=== PATIENT | male | born 1955 | race Two or more races ===

== ENCOUNTER 2022-05-26 05:05 | Day surgery (SDC) | payer OTHER ==
[2022-05-26] MEDS ORDERED: CEPHALEXIN500 M1 PO (08:56)
[2022-05-26] MEDS ORDERED: ULTRAM50 MG PO (08:57)
== END 2022-05-26 12:25 | disposition home or self-care (01) ==
LOC: CIR.AMB 05:05
PROVIDERS: ATTEND Surgery
DX: R15.9 Full incontinence of feces (principal); K62.5 Hemorrhage of anus and rectum; K57.30 Diverticulosis of large intestine without perforation or abscess without bleeding; Z20.822 Contact with and (suspected) exposure to COVID-19; L29.0 Pruritus ani; E78.5 Hyperlipidemia, unspecified
CPT/HCPCS: 64581; 95971; C1778

== ENCOUNTER 2022-06-09 05:25 | Day surgery (SDC) | payer OTHER ==
[~2022-06-09 05:25] MED LIST: CEPHALEXIN500 M1 PO; ULTRAM50 MG PO
[2022-06-09] MEDS ORDERED: ULTRAM50 MG PO (09:57)
== END 2022-06-09 11:00 | disposition home or self-care (01) ==
LOC: CIR.AMB 05:25
PROVIDERS: ATTEND Surgery
DX: R15.9 Full incontinence of feces (principal); L29.0 Pruritus ani; K57.30 Diverticulosis of large intestine without perforation or abscess without bleeding; Z20.822 Contact with and (suspected) exposure to COVID-19; K21.9 Gastro-esophageal reflux disease without esophagitis
CPT/HCPCS: 64590; 95971; L8679

== ENCOUNTER 2024-01-25 06:11 | Day surgery (SDC) | payer OTHER ==
[~2024-01-25] VITALS: Ht 162.6 cm; Wt 67.6 kg
[~2024-01-25 06:11] MED LIST changes: +CARAFATE1 GM PO; +PRILOSEC OTC20 MG PO; +SYNTHROID100 MCG PO; +TENORMIN50 M1 PO
[2024-01-25] MEDS ORDERED: CEFTRIAXONE SODIUM 2,000 MG VIAL ONE (08:39)
[2024-01-25] MEDS ORDERED: METRONIDAZOLE/SODIUM CHLORIDE 500 MG/100 ML PIGGYBACK IV ONE ×2 (08:39→13:00)
[2024-01-25] MEDS ORDERED: POVIDONE-IODINE 118 ML BOTT TOP ONE ×2 (10:56→13:00)
[2024-01-25] MEDS ORDERED: HEMOSTATIC MATRIX 1 KIT KIT TOP ONE ×2 (10:56→13:00)
[2024-01-25] MEDS ORDERED: DIBUCAINE 15 GM OINT..GM. TUBE ONE (10:56)
[2024-01-25] MEDS ORDERED: DIBUCAINE 15 GM OINT..GM. TUBE RECTAL ONE (13:00)
[2024-01-25] MEDS ORDERED: LIDOCAINE HCL 1%/Epi 20ML VIAL IJ ONE (13:00)
[2024-01-25] MEDS ORDERED: BUPIVACAINE HCL 30 ML VIAL IJ ONE (13:00)
[2024-01-25] MEDS ORDERED: CEFTRIAXONE SODIUM 2,000 MG VIAL IV ONE (13:00)
[2024-01-25] MEDS ORDERED: METHYLENE BLUE 50MG/10ML AMP IV ONE (13:15)
[2024-01-25] MEDS ORDERED: NEURONTIN300 MG PO (13:34)
[2024-01-25] MEDS ORDERED: PERCOCET 5-3251 EACH PO (13:35)
== END 2024-01-25 15:00 | disposition home or self-care (01) ==
LOC: CIR.AMB 06:11
PROVIDERS: ATTEND Surgery
DX: K60.1 Chronic anal fissure (principal); L29.0 Pruritus ani; K62.4 Stenosis of anus and rectum; Z20.822 Contact with and (suspected) exposure to COVID-19